=== PATIENT | male | born 2000 | race Caucasian/White ===

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

== ENCOUNTER 2020-04-21 22:37 | Emergency (ER) | payer SELFPAY ==
[~2020-04-21 22:37] MED LIST: NORCO 5-325 TA1 EAC1 PO
[2020-04-21 23:20] LABS: BASOPHIL 1.2 % (0-2); EOSINOPHIL 2.3 % (0-5); HCT 43.3 % (42.0-52.0); HGB 14.6 g/dl (13.2-18.0); LYMPHOCYTE 26.3 % (15-48); MCH 29.9 pg (25.0-31.0); MCHC 33.7 g/dL (32.0-36.0); MCV 88.7 fL (78.0-100.0); MONOCYTE 10.4 % (0-12); MPV 10.3 fL (6.0-9.5); NEUTROPHIL 59.6 % (41-80); NRBC 0; PLT 239 K/uL (150-400); RBC 4.88 M/uL (4.70-6.00); RDW 12.1 % (11.5-14.0); WBC 6.6 K/uL (4.0-10.5)
[2020-04-21 23:38] LABS: BUN/CREAT RATIO (CALC) 12.4 RATIO; CREATININE 1.13 mg/dL (0.67-1.17); POTASSIUM 4.4 mmol/L (3.5-5.1)
[2020-04-22] MEDS ORDERED: PEPCID AC20 MG PO (01:11)
[2020-04-22] MEDS ORDERED: ZPAK PO (01:11)
== END 2020-04-22 01:50 | disposition home or self-care (01) ==
LOC: FER 22:37
PROVIDERS: Emergency Medicine Emergency Medical Services
DX: U07.1 COVID-19 (principal); R07.1 Chest pain on breathing
CPT/HCPCS: 36415; 71275; 80048; 84484; 85025; 93005; J1885; J2270; J2405; Q9967

== ENCOUNTER 2021-11-15 18:25 | Emergency (ER) | payer OTHER ==
[~2021-11-15 18:25] MED LIST changes: +PEPCID AC20 MG PO; +ZPAK PO
== END 2021-11-15 21:20 | disposition home or self-care (01) ==
LOC: FER 18:25
DX: S61.214A Laceration without foreign body of right ring finger without damage to nail, initial encounter (principal); S60.410A Abrasion of right index finger, initial encounter; S60.412A Abrasion of right middle finger, initial encounter; S60.416A Abrasion of right little finger, initial encounter; Z23 Encounter for immunization; W27.0XXA Contact with workbench tool, initial encounter; Y92.89 Other specified places as the place of occurrence of the external cause; Y99.0 Civilian activity done for income or pay; Z28.310 Unvaccinated for COVID-19
CPT/HCPCS: 90471; 90715